=== PATIENT | female | born 1945 | race Caucasian/White ===

== ENCOUNTER 2020-02-20 11:39 | Emergency (ER) | payer MEDICARE ==
[2020-02-20 13:16] LABS: BASOPHIL 0.2 % (0-2); HCT 38.4 % (37.0-47.0); HGB 11.7 g/dl (12.5-16.0); LYMPHOCYTE 21.9 % (15-48); MCHC 30.5 g/dL (32.0-36.0); MCV 72.3 fL (78.0-100.0); MONOCYTE 6.9 % (0-12); NEUTROPHIL 69.3 % (41-80); NRBC 0; PLT 280 K/uL (150-400); RBC 5.31 M/uL (4.20-5.40)
[2020-02-20 13:17] LABS: WBC 4.2 K/uL (4.0-10.5)
[2020-02-20 13:34] LABS: BILIRUBIN - TOTAL 0.6 mg/dL (0.2-1.0); BUN/CREAT RATIO (CALC) 17.2 RATIO; C-REACTIVE PROTEIN 1.4 mg/dL (<=0.90); CREATININE 0.58 mg/dL (0.51-0.95); GLOBULIN (CALCULATION) 4.2 g/dL; MAGNESIUM 1.6 mg/dL (1.8-2.4); POTASSIUM 2.8 mmol/L (3.5-5.1); TOTAL PROTEIN 7.2 g/dL (6.4-8.2)
[2020-02-20 13:48] LABS: LACTIC ACID 1.1 mmol/L (0.4-1.9)
[2020-02-20] MEDS ORDERED: ZOFRAN4 M1 PO (18:11)
[2020-02-20] MEDS ORDERED: TESSALON PERLE100 M1 PO (18:12)
[2020-02-20] MEDS ORDERED: VENTOLIN HFA18 GM INH (18:12)
== END 2020-02-20 19:28 | disposition home or self-care (01) ==
LOC: FER 11:39
PROVIDERS: Emergency Medicine
DX: U07.1 COVID-19 (principal); E11.9 Type 2 diabetes mellitus without complications; Z88.0 Allergy status to penicillin; Z88.1 Allergy status to other antibiotic agents; Z79.84 Long term (current) use of oral hypoglycemic drugs
CPT/HCPCS: 36415; 36600; 71045; 80053; 82728; 82803; 83605; 83615; 83735; 84145; 84484; 85025; 86140; 93005; J7030; J7050; M0239